=== PATIENT | male | born 1960 | race Caucasian/White ===

== ENCOUNTER 2020-10-09 16:37 | Emergency (ER) | payer OTHER ==
[2020-10-09] MEDS ORDERED: FAMOTIDINE 20 MG/2 ML VIAL IV ONE (18:08)
[2020-10-09] MEDS ORDERED: NA CHLORIDE 0.9% 500 ML ONE (18:08)
[2020-10-09 18:12] LABS: Absolute Lymphocytes (CBC) 1.8 K/uL (0.7-4.9); Basophils % 0.5 % (0-1.3); Hematocrit 42.4 % (39.6-49.0); Lymphocytes % 14.6 % (15.3-44.8); MPV 9.4 fL (7.6-11.3); RBC Red Blood Cell Count 4.56 M/uL (4.33-5.43)
[2020-10-09] MEDS ORDERED: ONDANSETRON 4 MG/2 ML VIAL ONE (18:24)
[2020-10-09] MEDS ORDERED: MORPHINE 4 MG/ML SYR ONE (18:24)
[2020-10-09 18:35] LABS: Urine Blood NEGATIVE (NEG); Urine Glucose NEGATIVE (NEG); Urine Protein NEGATIVE (NEG); Urine Specific Gravity 1.015 (1.005-1.030)
[2020-10-09 18:48] LABS: Bilirubin Direct 0.2 mg/dL (0-0.2); Bilirubin Total 0.8 mg/dL (0.2-1.0); Potassium 4.1 mmol/L (3.5-5.1); Protein, Total 7.3 g/dL (6.4-8.2)
--- NOTE | 2020-10-09 19:19 | RAD REPORT ---
EXAM DESCRIPTION: CT - Abdomen Pelvis W Contrast - 10/09/2020 7:02 pm CLINICAL HISTORY: Abdominal pain COMPARISON: none. TECHNIQUE: Computed axial tomography of the abdomen pelvis was obtained. 100 cc Isovue-300 was admin istered intravenously. Oral contrast was not requested which limits evaluation of bowel. All CT scans are performed using dose optimization technique as appropriate and may include automated exposure control or mA/KV adjustment according to patient size. FINDINGS: Multiple gallstones. No gallbladder wall thickening The liver, spleen, pancreas, adrenal and kidneys appear unremarkable. Diverticulosis. Mild stranding adjacent to the sigmoid colon. No free air. No abscess. Prostate gland mildly enlarged. Normal appendix IMPRESSION: Mild sigmoid diverticulitis
[2020-10-09] MEDS ORDERED: METRONIDAZOLE 500mg IVPB 500 MG/100 ML BAG IV ONE (19:56)
[2020-10-09] MEDS ORDERED: CIPROFLOXACIN 400mg IV 400 MG/200 ML BAG IV ONE (19:57)
--- NOTE | 2020-10-09 21:08 | ER ---
Nurse's Notes [facility] Name: Jon Bui Age: 60 yrs Sex: Male : 1960 Arrival Date: 10/09/2020 Time: 16:42 Bed 14 Private MD: Yomi Epstein Diagnosis: Diverticulitis Presentation: 10/09 16:49 Chief complaint: Patient states: LLQ abd pain for 2 days. Denies fever. No N/V/D. Had ll1 diverticulitis 7 years ago, feels the same. Coronavirus screen: Client denies travel out of the [place] in the last 14 days. Ebola Screen: Patient denies travel to an Ebola-affected area in the 21 days before illness onset. Initial Sepsis Screen: Does the patient meet any 2 criteria? No. Patient's initial sepsis screen is negative. Does the patient have a suspected source of infection? Yes: Acute abdominal pain. Risk Assessment: Do you want to hurt yourself or someone else? Patient reports no desire to harm self or others. Onset of symptoms was October 08, 2020. 16:49 Method Of Arrival: Ambulatory ll1 16:49 Acuity: ROSCOE 3 ll1 Historical: - Allergies: 16:49 Sulfa (Sulfonamide Antibiotics); ll1 - PMHx: 16:49 Diverticulitis; Hypertension; High Cholesterol; ll1 - PSHx: 16:49 colectomy; Hernia repair; ll1 - Immunization history:: Flu vaccine is not up to date. - Social history:: Smoking status: Patient denies any tobacco usage or history of. Screenin:40 Abuse screen: Denies threats or abuse. Nutritional screening: No deficits noted. em Tuberculosis screening: No symptoms or risk factors identified. Fall Risk None identified. Assessment: 17:40 General: Appears in no apparent distress. uncomfortable, Behavior is calm, cooperative, em appropriate for age, Denies fever. Pain: Complains of pain in right lower quadrant and left lower quadrant Pain does not radiate. Pain currently is 4 out of 10 on a pain scale. at worst was 7 out of 10 on a pain scale. Quality of pain is described as dull, Pain began 1 day ago. Neuro: Level of Consciousness is awake, alert, obeys commands, Oriented to person, place, time, situation. Cardiovascular: Capillary refill < 3 seconds Patient's skin is warm and dry. Chest pain is denied. Respiratory: Airway is patent Respiratory effort is even, unlabored, Respiratory pattern is regular, symmetrical, Denies shortness of breath. GI: Abdomen is round non-distended, Bowel sounds present X 4 quads. Abd is soft X 4 quads Abdomen is tender to palpation in abdomen diffusely Reports bloating. : Denies burning with urination. Derm: Skin is intact, is healthy with good turgor, Skin is pink, warm \T\ dry. Musculoskeletal: Capillary refill < 3 seconds, Range of motion: intact in all extremities. 18:30 Reassessment: Patient appears in no apparent distress at this time. Patient and/or em family updated on plan of care and expected duration. Pain level reassessed. Patient is alert, oriented x 3, equal unlabored respirations, skin warm/dry/pink. Patient states feeling better. 19:17 General: Appears in no apparent distress. Pain: Denies pain. Neuro: No deficits noted. ad1 Cardiovascular: No deficits noted. Respiratory: No deficits noted. Airway is patent Trachea midline Respiratory effort is even, unlabored, Respiratory pattern is regular. GI: Abdomen is tender to palpation in right lower quadrant and left lower quadrant states no pain at this time. 20:34 Reassessment: Patient appears in no apparent distress at this time. No changes from ad1 previously documented assessment. Patient and/or family updated on plan of care and expected duration. Pain level reassessed. Patient is alert, oriented x 3, equal unlabored respirations, skin warm/dry/pink. Patient states feeling better. Vital Signs: 16:49 BP 160 / 84; Pulse 67; Resp 17; Temp 98.6; Pulse Ox 99% ; Weight 83.91 kg; Height 5 ft. ll1 10 in. (177.80 cm); Pain 6/10; 18:30 BP 131 / 75; Pulse 60; Resp 18; Pulse Ox 99% on R/A; em 19:15 BP 142 / 81; Pulse 68; Resp 18; Pulse Ox 100% ; Pain 0/10; ad1 20:35 BP 127 / 76; Pulse 64; Resp 16; Pulse Ox 100% ; ad1 21:30 BP 126 / 77; Pulse 65; Resp 18; Pulse Ox 100% ; ad1 21:40 BP 138 / 83; Pulse 64; Resp 18; Pulse Ox 100% ; ad1 16:49 Body Mass Index 26.54 (83.91 kg, 177.80 cm) ll1 ED Course: 16:42 Patient arrived in ED. mr 16:43 Yomi Epstein, is Private Physician. mr 16:49 Arm band placed on. ll1 16:51 Triage completed. 1 17:18 Derick Blair MD is Attending Physician. kdr 17:23 Kenji Khan, FRAN is Primary Nurse. em 17:40 Patient has correct armband on for positive identification. Bed in low position. Call em light in reach. Side rails up X2. Adult w/ patient. Pulse ox on. NIBP on. 18:00 Initial lab(s) drawn, by me, sent to lab. Inserted saline lock: 20 gauge in right em antecubital area, using aseptic technique. Blood collected. 19:01 CT Abd/Pelvis - IV Contrast Only In Process Unspecified. EDIA 19:18 Attending Physician role handed off by Derick Blair MD [facility] 19:18 Delroy Azevedo MD is Attending Physician. [facility] 21:06 Sharath Vargas MD is Referral Physician. [facility] 21:40 No provider procedures requiring assistance completed. IV discontinued. ad1 Administered Medications: 18:00 Drug: NS 0.9% 500 ml Route: IV; Rate: bolus; Site: right antecubital; em 18:59 Follow up: IV Status: Completed infusion; IV Intake: 500ml em 18:00 Drug: Pepcid 20 mg Route: IVP; Site: right antecubital; em 18:17 Follow up: Response: No adverse reaction em 18:17 Drug: morphine 4 mg Route: IVP; Site: right antecubital; em 18:59 Follow up: Response: No adverse reaction; Marked relief of symptoms; Pain is decreased; em RASS: Alert and Calm (0) 18:19 Drug: Zofran (Ondansetron) 4 mg Route: IVP; Site: right antecubital; em 18:59 Follow up: Response: No adverse reaction em 19:53 Drug: Flagyl 500 mg Volume: 100 ml; Route: IVPB; Rate: 200 ml/hr; Infused Over: 30 ad1 mins; Site: right antecubital; 20:26 Drug: Cipro 400 mg Volume: 200 ml; Route: IVPB; Infused Over: 60 mins; Site: right ad1 antecubital; Intake: 18:59 IV: 500ml; Total: 500ml. em Outcome: 21:07 Discharge ordered by . naina 21:40 Discharged to home ad1 21:40 Condition: good 21:40 Discharge instructions given to patient, Instructed on discharge instructions, follow up and referral plans. Demonstrated understanding of instructions, follow-up care, medications, Prescriptions given X 4. 21:41 Patient left the ED. ad1 Signatures: Dispatcher [employer] EDMS Derick Blair MD MD [facility] [place]ol[place], [place] mr Kenji Khan RN RN em Kathleen Wong RN RN ad1 Janice Robison RN RN 1 Delroy Azevedo MD MD 7 Corrections: (The following items were deleted from the chart) 10/10 00:02 00:01 Discharged to home ad1 ad1 00:02 00:01 Condition: good ad1 ad1 00:02 00:01 Discharge instructions given to patient, Instructed on discharge instructions, ad1 follow up and referral plans. Demonstrated understanding of instructions, follow-up care, medications, Prescriptions given X 4, ad1
--- NOTE | 2020-10-09 21:08 | EDPHYS ---
Physician Documentation [facility] Name: Jon Bui Age: 60 yrs Sex: Male : 1960 Arrival Date: 10/09/2020 Time: 16:42 Bed 14 Private MD: Yomi Epstein ED Physician Delroy Azevedo HPI: 10/09 17:50 This 60 yrs old Male presents to ER via Ambulatory with complaints of kdr Abdominal Pain. 17:50 The patient presents with abdominal pain in the lower abdomen, in the left lower kdr quadrant, abdominal distention in the left upper quadrant, in the left lower quadrant, that is diffuse. Onset: The symptoms/episode began/occurred gradually, yesterday. The symptoms do not radiate. Associated signs and symptoms: Pertinent positives: nausea, Pertinent negatives: blood in stools, chest pain, constipation, diarrhea, dysuria, fever, headache, hematuria, shortness of breath, testicular pain, vomiting, vomiting blood, More frequent urination and smaller caliber stools. The symptoms are described as achy, burning, dull, Occasionally when more severe, the pain is stabbing. Modifying factors: The symptoms are alleviated by nothing, the symptoms are aggravated by movement, pressure, touching the area, walking. Severity of pain: At its worst the pain was moderate just prior to arrival, in the emergency department the pain has improved moderately. The patient has experienced a previous episode, About 20 years ago, the patient had a bowel obstruction and had emergent laparotomy and colon resection. He states that this pain is similar. It is unknown whether or not the patient has recently seen a physician. Historical: - Allergies: 16:49 Sulfa (Sulfonamide Antibiotics); ll1 - PMHx: 16:49 Diverticulitis; Hypertension; High Cholesterol; ll1 - PSHx: 16:49 colectomy; Hernia repair; ll1 - Immunization history:: Flu vaccine is not up to date. - Social history:: Smoking status: Patient denies any tobacco usage or history of. ROS: 17:50 Constitutional: Negative for fever, chills, and weight loss, Eyes: Negative for injury, kdr pain, redness, and discharge, ENT: Negative for injury, pain, and discharge, Neck: Negative for injury, pain, and swelling, Cardiovascular: Negative for chest pain, palpitations, and edema, Respiratory: Negative for shortness of breath, cough, wheezing, and pleuritic chest pain, Back: Negative for injury and pain, : Negative for injury, bleeding, discharge, and swelling, MS/Extremity: Negative for injury and deformity, Skin: Negative for injury, rash, and discoloration, Neuro: Negative for headache, weakness, numbness, tingling, and seizure activity. Psych: Negative for depression, anxiety, suicide ideation, homicidal ideation, and hallucinations, Allergy/Immunology: Negative for hives, rash, and allergies, Endocrine: Negative for neck swelling, polydipsia, polyuria, polyphagia, and marked weight changes, Hematologic/Lymphatic: Negative for swollen nodes, abnormal bleeding, and unusual bruising. 17:50 Abdomen/GI: Positive for abdominal pain, nausea, abdominal cramps, abdominal distension, Negative for vomiting, diarrhea, anorexia, dysphagia, hematemesis, black/tarry stool, rectal pain, rectal bleeding, bowel incontinence. Exam: 17:50 Constitutional: This is a well developed, well nourished patient who is awake, alert, kdr and in no acute distress. Head/Face: Normocephalic, atraumatic. Eyes: Pupils equal round and reactive to light, extra-ocular motions intact. Lids and lashes normal. Conjunctiva and sclera are non-icteric and not injected. Cornea within normal limits. Periorbital areas with no swelling, redness, or edema. Neck: Trachea midline, no thyromegaly or masses palpated, and no cervical lymphadenopathy. Supple, full range of motion without nuchal rigidity, or vertebral point tenderness. No Meningismus. Chest/axilla: Normal chest wall appearance and motion. Nontender with no deformity. No lesions are appreciated. Cardiovascular: Regular rate and rhythm with a normal S1 and S2. No gallops, murmurs, or rubs. Normal PMI, no JVD. No pulse deficits. Respiratory: Lungs have equal breath sounds bilaterally, clear to auscultation and percussion. No rales, rhonchi or wheezes noted. No increased work of breathing, no retractions or nasal flaring. Back: No spinal tenderness. No costovertebral tenderness. Full range of motion. Skin: Warm, dry with normal turgor. Normal color with no rashes, no lesions, and no evidence of cellulitis. MS/ Extremity: Pulses equal, no cyanosis. Neurovascular intact. Full, normal range of motion. Neuro: Awake and alert, GCS 15, oriented to person, place, time, and situation. Cranial nerves II-XII grossly intact. Motor strength 5/5 in all extremities. Sensory grossly intact. Cerebellar exam normal. Normal gait. Psych: Awake, alert, with orientation to person, place and time. Behavior, mood, and affect are within normal limits. 17:50 Abdomen/GI: Inspection: distension, that is moderate, in the abdomen diffusely, Bowel sounds: active, diminished, in all quadrants, Palpation: soft, mild abdominal tenderness, in the left upper quadrant and right lower quadrant, moderate abdominal tenderness, in the left lower quadrant, mass, is not appreciated, rebound tenderness, is not appreciated, voluntary guarding, involuntary guarding, is elicited in the left lower quadrant. Vital Signs: 16:49 BP 160 / 84; Pulse 67; Resp 17; Temp 98.6; Pulse Ox 99% ; Weight 83.91 kg; Height 5 ft. ll1 10 in. (177.80 cm); Pain 6/10; 18:30 BP 131 / 75; Pulse 60; Resp 18; Pulse Ox 99% on R/A; em 19:15 BP 142 / 81; Pulse 68; Resp 18; Pulse Ox 100% ; Pain 0/10; ad1 20:35 BP 127 / 76; Pulse 64; Resp 16; Pulse Ox 100% ; ad1 21:30 BP 126 / 77; Pulse 65; Resp 18; Pulse Ox 100% ; ad1 21:40 BP 138 / 83; Pulse 64; Resp 18; Pulse Ox 100% ; ad1 16:49 Body Mass Index 26.54 (83.91 kg, 177.80 cm) ll1 MDM: 17:50 Data reviewed: vital signs, nurses notes, lab test result(s), radiologic studies, CT kdr scan. Counseling: I had a detailed discussion with the patient and/or guardian regarding: the historical points, exam findings, and any diagnostic results supporting the discharge/admit diagnosis, lab results, radiology results. 21:05 Differential diagnosis: bowel obstruction, diverticulitis, non-specific abd pain, mh7 Ureterolithiasis, urinary tract infection. Data interpreted: Pulse oximetry: on room air is 100 %. Interpretation: normal. Response to treatment: the patient's symptoms have resolved after treatment, the patient's blood pressure is in an acceptable range, mental status has returned to baseline, the patient no longer shows bradycardia, the patient is not short of breath, the patient is not tachycardic, the patient's pain is gone, the patient's temperature has normalized. 21:07 Patient medically screened. mh7 10/09 17:50 Order name: Basic Metabolic Panel; Complete Time: 18:52 kdr 10/09 17:50 Order name: CBC with Diff; Complete Time: 18:52 kdr 10/09 17:50 Order name: Hepatic Function; Complete Time: 18:52 kdr 10/09 17:50 Order name: Lipase; Complete Time: 18:52 kdr 10/09 17:50 Order name: CT Abd/Pelvis - IV Contrast Only; Complete Time: 19:22 kdr 10/09 18:15 Order name: Urine Dipstick--Ancillary (enter results); Complete Time: 18:52 eb 10/09 17:50 Order name: IV Saline Lock; Complete Time: 18:07 kdr 10/09 17:50 Order name: Labs collected and sent; Complete Time: 18:07 kdr 10/09 17:50 Order name: Urine Dipstick-Ancillary (obtain specimen); Complete Time: 18:04 kdr Administered Medications: 18:00 Drug: NS 0.9% 500 ml Route: IV; Rate: bolus; Site: right antecubital; em 18:59 Follow up: IV Status: Completed infusion; IV Intake: 500ml em 18:00 Drug: Pepcid 20 mg Route: IVP; Site: right antecubital; em 18:17 Follow up: Response: No adverse reaction em 18:17 Drug: morphine 4 mg Route: IVP; Site: right antecubital; em 18:59 Follow up: Response: No adverse reaction; Marked relief of symptoms; Pain is decreased; em RASS: Alert and Calm (0) 18:19 Drug: Zofran (Ondansetron) 4 mg Route: IVP; Site: right antecubital; em 18:59 Follow up: Response: No adverse reaction em 19:53 Drug: Flagyl 500 mg Volume: 100 ml; Route: IVPB; Rate: 200 ml/hr; Infused Over: 30 ad1 mins; Site: right antecubital; 20:26 Drug: Cipro 400 mg Volume: 200 ml; Route: IVPB; Infused Over: 60 mins; Site: right ad1 antecubital; Disposition: 10/09/20 21:07 Discharged to Home. Impression: Diverticulitis. - Condition is Stable. - Discharge Instructions: Diverticulitis, Ajef-oy-Ehve, Clear Liquid Diet, [id number]. - Prescriptions for Bentyl 20 mg Oral Tablet - take 1 tablet by ORAL route every 6 hours As needed; 20 tablet. Flagyl 500 mg Oral Tablet - take 1 tablet by ORAL route every 8 hours for 10 days; 30 tablet. Tylenol- Codeine #3 300-30 mg Oral Tablet - take 2 tablets by ORAL route every 6 hours As needed; 20 tablet. Cipro 500 mg Oral Tablet - take 1 tablet by ORAL route every 12 hours for 10 days; 20 tablet. - Medication Reconciliation Form, Thank You Letter, Antibiotic Education, Prescription Opioid Use form. - Follow up: Private Physician; When: 1 - 2 days; Reason: Worsening of condition, Recheck today's complaints, Continuance of care, Re-evaluation by your physician. Follow up: Sharath Vargas MD; When: 1 - 2 days; Reason: Worsening of condition, Recheck today's complaints. - Problem is an acute exacerbation. - Symptoms have improved. Signatures: Dispatcher [employer] Derick Thomas MD MD [facility] Kenji Khan RN FRAN Kathleen Wong RN RN ad1 Janice Robison RN RN ll1 Delroy Azevedo MD MD mh7 Corrections: (The following items were deleted from the chart) 21:41 21:07 10/09/2020 21:07 Discharged to Home. Impression: Diverticulitis. Condition is ad1 Stable. Forms are Medication Reconciliation Form, Thank You Letter, Antibiotic Education, Prescription Opioid Use. Follow up: Private Physician; When: 1 - 2 days; Reason: Worsening of condition, Recheck today's complaints, Continuance of care, Re-evaluation by your physician. Follow up: Sharath Vargas; When: 1 - 2 days; Reason: Worsening of condition, Recheck today's complaints. Problem is an acute exacerbation. Symptoms have improved. 7
[2020-10-10 04:13] VITALS: TEMP 98.6
[2020-10-10 04:16] VITALS: O2SAT 100
[2020-10-10 04:21] VITALS: BP 138/83
== END 2020-10-09 21:41 | disposition home or self-care (01) ==
LOC: ER 16:37
DX: K57.92 Diverticulitis of intestine, part unspecified, without perforation or abscess without bleeding (principal); I10 Essential (primary) hypertension; Z88.2 Allergy status to sulfonamides
CPT/HCPCS: 96361; 85025; 80048; 36415; 80076; 81003; 83690; 74177; 96375; 96374; 99284; Q9967; J7040; J2405; J0744

== ENCOUNTER 2021-11-03 14:16 | Emergency (ER) | payer OTHER ==
--- OUTSIDE RECORDS SUMMARY | 2021-11-03 14:19 | XMS REPORT | Continuity of Care Document ---
:1960 Author Organization [facility] t Address [address] [place] [address] Care Team Providers Name Role Phone AMELIA Attending Clinician Unavailable Payers Payer Name Policy Type Policy Number Effective Date Expiration Date S lauri [employer] [id number] [employer] [id number] 2019 00:00:00 Problems This patient has no known problems. Allergies, Adverse Reactions, Alerts Allergy Allergy Status Severity Reaction(s) Onset Inactive Treating Comm ents Source Name Type Date Date Clinician SULFA Allergy Active Other SLE (SULFONA 908 MIDE 00:00: ANTIBIOT 00 ICS) Sulfa Adverse Active Info Not [facility] Reaction Available [facility] Medications Ordered Filled Start Stop Current Ordering Indication Dosage Frequency Signature Comments Components Source Medication Medication Date Date Medication? Clinician (SIG) Name Name Tamsulosin Tamsulosin 2020- No Anh [address] [facility] HCl HCl 8-17 02-12 Leila [facility] Prazosin Prazosin 2018-11 Yes Anh [address] [facility] HCl HCl 0-28 Leila at bedtime [facility] Triamcinolo Triamcinolo 2018-11 Yes Anh [address] [facility] ne ne 0-28 Adell applicatio [facility] Acetonide Ac[facility]ide [facility]: n [facility] Fluoxetine Fluoxetine Yes Anh [address] [facility] HCl HCl Adell [facility] Trazodone Trazodone Yes Anh [address] [facility] HCl HCl Adell at bedtime [facility] Losartan Losartan Yes Anh [address] Potassium Potassium [facility] Atorvastati Atorvastati Yes Anh [address] [facility] n Calcium n Calcium Leila [facility] Immunizations Ordered Filled Immunization Date Status Comments [facility] e Immunization Name Name PNEUMAVAX 23 PNEUMAVAX 23 2019-11-[address] [facility] - 00:[facility]00 [facility] Procedures This patient has no known procedures. Encounters Start End Encounter Admission Attending Care Care Encounter Source Date/Time Date/Time Type Type Clinicians Facility Department ID 2021-09-21 2021-09-21 ambulatory [facility] [id number] [facility] 2021-09-07 2021-09-07 Out[facility] [id number] [facility] 2021-09-07 2021-09-07 Out[facility] [id number] [facility] 2021-04-08 2021-04-08 [facility] [id number] [facility] 2021-01-10 2021-01-10 Out[facility] [id number] [facility] 2020-12-23 2020-12-23 Out[facility] [id number] [facility] 2020-12-17 2020-12-17 Out[facility] [id number] [facility] 2020-12-08 2020-12-08 [facility] [id number] [facility] 2020-12-02 2020-12-02 [facility] [id number] [facility] 2020-11-25 2020-11-25 [facility] [id number] [facility] 2020-10-28 2020-10-28 [facility] [id number] [facility] 2020-10-20 2020-10-20 Out[facility] [id number] [facility] 2020-10-19 2020-10-19 Out[facility] [id number] [facility] 2020-09-27 2020-09-27 Out[facility] [id number] [facility] 2020-09-06 2020-09-06 Out[facility] [id number] [facility] 2020-08-02 2020-08-02 [facility] [id number] [facility] 09:00:00 09:00:00 t Specialty/U [facility] - [facility]Urology Clinic l Clinic Outpati ent Clinics 2020-07-27 2020-07-27 Outpatient AMELIA, [facility] [id number] [facility] 00:00:00 00:00:00 DAE 2020-07-21 2020-07-21 Outpatient EL AMELIA, [facility] [id number] [facility] 00:00:00 00:00:00 [facility]AE 2020-07-05 2020-07-05 [facility] [id number] [facility] 08:30:00 08:30:00 t Specialty/U Jesi [facility] - Specialty rology Mem[facility] /Urology Clinic l [facility] 2020-07-01 2020-07-01 Outpatient Eneida Hunter [id number] [facility] 09:30:00 09:30:00 [facility] 2020-01-01 2020-01-01 Outpatient Eneida Moniquet [id number] 08:45:00 08:45:00 t [facility] 2019-11-24 2019-11-24 Outpatient Eneida Moniquet [id number] 10:30:00 10:30:00 [facility] 2019-09-15 2019-09-15 Outpatient Eneida Moniquet [id number] [facility] 13:30:00 13:30:00 [facility] Results Test Description Test Time Test Comments Results Result [facility] Comments MR, PELVIS, Unlisted FINAL REPORT PATIENT ID: WITHOUT / WITH IV 8 Reason for [id number] PROCEDURE: MRI CONTRAST 15:32:00 Exam - Click PROSTATE WITH CONTRAST Yes and Enter COMPARISON: None CLINICAL Reason HISTORY: Unlisted Reason Below->YesUnl for ExamN40.0 TECHNIQUE: isted Reason Using a phased array coil for small xrwzz-ma-mtdt Exam->N40.0 imaging of the prostate was performed using the following sequences; [axial T1-weighted, axial T2-weighted, sagittal T2-weighted,oblique coronal T2-weighted, diffusion-weighted]. Axial T1-weighted images with fat suppression through the prostate were obtained before and dynamically after the intravenous administration of gadolinium. Using a large [id number]-oc-tqgl, the entire pelvis to the level of the aortic bifurcation was imaged with the following sequences; precontrast nonfat saturated T1-weighted images FINDINGS: PROSTATE: Size of total gland: 4.5 x 4.2 x 4.7 cm. Total volume 46.2 cc. BPH: Multifocal well-circumscribed lesions of heterogeneous T2 hyperintensity, consistent with BPH nodulesMedian lobe: Mildly hypertrophiedEvidence of TURP: No TRANSITIONAL ZONE: At the basal mid gland, there is non-circumscribed T2 heterogeneous signal with obscured margins, 1.4 x 1.4 cm, with enhancement (series 5, image 13) in the periphery of the left transitional zone, with focal markedly hypointense ADC signal and markedly hyperintense DWI signal. Does not abut the capsule and does not involve the seminal vesicle or neurovascular bundle. PERIPHERAL ZONE: No suspicious focal lesions SEMINAL VESICLES: Right: Normal in appearance and signal characteristics. Left: Normal in appearance and signal characteristics. EXTRACAPSULAR EXTENSION: No extracapsular extension identified on MRI. NEUROVASCULAR BUNDLES: Intact. BLADDER: Circumferential mild bladder wall trabeculations VESSELS: Normal in morphology LYMPH NODES: No pelvic lymphadenopathy. BOWEL: Normal in morphology BONES/BONE MARROW: Normal bone marrow signal intensity. No fractures. No suspicious bone lesion. IMPRESSION: 1. Intermediate suspicion 1.4 cm lesion in the left transitional zone at the basal mid gland. PI-RADS 3. No evidence for extra prostatic extension. 2. No suspicious lesions in the peripheral zone. 3. BPH and mild prostatomegaly PI-RADS: 1- benign; 2 - most probably benign;3 - intermediate; 4 - probably malignant;5 - highly suspicious of malignancy Signed: Tiffany Guerrier MDReport Verified Date/Time: 07/27/2020 15:32:02 Reading Location: [address] Consult Reading Room -CREATININE 2020-07-27 07:19:00 Test Item Value Reference Range Interpretation Comme [facility] POC-CREATININE (RENATEAKER) 1.1 mg/dL 0.6-1.3 : TE STED AT [facility] 7200 (test code = 1859) [facility] [id number]: Patient Services Manager /Surveyor Rod Helper ID = [id number] for THEA REID POC-EGFR (BEAKER) (test 68 mL/min/1.73M2 code = 1860)
[2021-11-03] MEDS ORDERED: MORPHINE 4 MG/ML SYR ONE ×2 (14:29→15:39)
[2021-11-03] MEDS ORDERED: ONDANSETRON 4 MG/2 ML VIAL ONE (14:29)
[2021-11-03] MEDS ORDERED: NA CHLORIDE 0.9% 1,000 ML ONE (14:30)
[2021-11-03 14:36] LABS: Absolute Lymphocytes (CBC) 3.3 K/uL (0.7-4.9); Basophils % 0.5 % (0-1.3); Lymphocytes % 32.7 % (15.3-44.8); MPV 8.6 fL (7.6-11.3); RBC Red Blood Cell Count 4.66 M/uL (4.33-5.43)
[2021-11-03 14:52] LABS: Albumin 3.8 g/dL (3.4-5.0); Bilirubin Direct 0.2 mg/dL (0-0.2); Potassium 3.2 mmol/L (3.5-5.1); Protein, Total 7.4 g/dL (6.4-8.2)
[2021-11-03] MEDS ORDERED: FENTANYL CITR 100 MCG/2 ML ONE (14:58)
--- NOTE | 2021-11-03 15:41 | RAD REPORT ---
EXAM DESCRIPTION: CTAbdomen Pelvis W Contrast - 11/03/2021 3:28 pm CLINICAL HISTORY: ABD PAIN COMPARISON: Abdomen Pelvis W Contrast dated 10/09/2020 TECHNIQUE: CT of the abdomen and pelvis was performed. All CT scans are performed using dose optimization technique as appropriate and may include automated exposure control or mA/KV adjustment according to patient size. FINDINGS: Lower chest: Scattered coronary artery calcifications. Small hiatal hernia. Liver: No acute abnormality or suspicious lesions. Biliary: Cholelithiasis without CT evidence of acute cholecystitis. Stomach: No significant focal abnormality. Duodenum: No significant focal abnormality. Pancreas: No significant abnormality. Spleen: No significant abnormality. Adrenal: No suspicious lesions. Kidney/ureter: Mild right-sided hydronephrosis. No obstructing stone is identified. Retroperitoneum: No retroperitoneal adenopathy. Vascular: No aneurysm. Bowel: No significant focal abnormality. Normal appendix. Partial colectomy. Peritoneum: No ascites or free air. Bladder: Grossly unremarkable. Reproductive: No adnexal masses. Prostatomegaly. Bones: No acute fracture. Disc height loss at L5-S1. Other: n/a IMPRESSION: Mild right-sided hydronephrosis. No obstructing stone or mass is identified. This could be secondary to infection or recently passed stone. If symptoms persist, consider urologic referral.
[2021-11-03] MEDS ORDERED: KETOROLAC 30 MG/ML INJ ONE (15:47)
[2021-11-03 17:29] LABS: Urine Blood 3+ (Negative); Urine Glucose Negative (Negative); Urine Protein Negative (Negative); Urine Specific Gravity <=1.005 (1.005-1.030)
--- NOTE | 2021-11-03 17:29 | EDPHYS ---
Physician Documentation [facility] Name: Jon Bui Age: 61 yrs Sex: Male : 1960 Arrival Date: 11/03/2021 Time: 14:18 Bed 13 Private MD: ED Physician Derick Blair HPI: 11/03 15:44 This 61 yrs old Male presents to ER via Wheelchair with complaints of Abdominal Pain. kb 15:44 The patient presents with abdominal pain right lower quadrant. Onset: The kb symptoms/episode began/occurred just prior to arrival. The symptoms do not radiate. Associated signs and symptoms: none. The symptoms are described as constant. Modifying factors: The symptoms are alleviated by nothing, the symptoms are aggravated by nothing. Severity of pain: At its worst the pain was moderate severe in the emergency department the pain is unchanged. The patient has not experienced similar symptoms in the past. The patient has not recently seen a physician. 15:57 Pt reports sudden onset of sharp pain to right lower back radiating to RLQ and down to kb groin.. Historical: - Allergies: 14:24 Sulfa (Sulfonamide Antibiotics); iw - PMHx: 14:24 Diverticulitis; High Cholesterol; Hypertension; iw - Immunization history:: Client reports receiving the 2nd dose of the Covid vaccine. - Social history:: Smoking status: . ROS: 15:44 Constitutional: Negative for fever, chills, and weight loss. kb 15:44 Abdomen/GI: Positive for abdominal pain, Negative for nausea, vomiting, and diarrhea. 15:44 All other systems are negative. Exam: 15:44 Constitutional: This is a well developed, well nourished patient who is awake, alert, kb and in no acute distress. Head/Face: Normocephalic, atraumatic. ENT: Moist Mucous membranes Cardiovascular: Regular rate and rhythm with a normal S1 and S2. No gallops, murmurs, or rubs. No pulse deficits. Respiratory: Respirations even and unlabored. No increased work of breathing. Talking in full sentences Skin: Warm, dry with normal turgor. Normal color. MS/ Extremity: Pulses equal, no cyanosis. Neurovascular intact. Full, normal range of motion. Neuro: Awake and alert, GCS 15, oriented to person, place, time, and situation. Moves all extremities. Normal gait. Psych: Awake, alert, with orientation to person, place and time. Behavior, mood, and affect are within normal limits. 15:44 Abdomen/GI: Inspection: abdomen appears normal, Bowel sounds: normal, in all quadrants, Palpation: soft, in all quadrants, moderate abdominal tenderness, in the right lower quadrant. Vital Signs: 14:22 BP 184 / 79; Pulse 62; Resp 18; Temp 97.8; Pulse Ox 100% ; Weight 83.91 kg; Height 5 iw ft. 10 in. (177.80 cm); Pain 10/10; 14:25 BP 184 / 69; Pulse 87; Resp 20; Temp 97.8; Pulse Ox 98% on R/A; kj1 15:00 BP 144 / 72; Pulse 66; Resp 22 S; Pulse Ox 100% on R/A; jg9 16:00 BP 130 / 70; Pulse 66; Resp 10; Pulse Ox 89% on R/A; jg9 17:00 BP 117 / 64; Pulse 83; Resp 14; Pulse Ox 98% on 2 lpm NC; jg9 14:22 Body Mass Index 26.54 (83.91 kg, 177.80 cm) iw MDM: 14:30 Patient medically screened. kb 15:44 Data reviewed: vital signs, nurses notes. Data interpreted: Pulse oximetry: on room air kb is 100 %. Interpretation: normal. 15:45 Counseling: I had a detailed discussion with the patient and/or guardian regarding: the kb historical points, exam findings, and any diagnostic results supporting the discharge/admit diagnosis, lab results, radiology results, the need for outpatient follow up, a urologist, to return to the emergency department if symptoms worsen or persist or if there are any questions or concerns that arise at home. 11/03 14:22 Order name: Basic Metabolic Panel; Complete Time: 15:11 iw 11/03 14:22 Order name: CBC with Diff; Complete Time: 15:11 iw 11/03 14:22 Order name: Hepatic Function; Complete Time: 15:11 iw 11/03 14:22 Order name: Lipase; Complete Time: 15:11 iw 11/03 14:29 Order name: CT Abd/Pelvis - IV Contrast Only; Complete Time: 15:43 kb 11/03 17:29 Order name: Urine Dipstick-Ancillary; Complete Time: 17:29 EDME 11/03 14:22 Order name: IV Saline Lock; Complete Time: 14:30 iw 11/03 14:22 Order name: Labs collected and sent; Complete Time: 14:30 iw 11/03 15:57 Order name: Urine Dipstick-Ancillary (obtain specimen); Complete Time: 17:42 kb Administered Medications: 14:38 Drug: Zofran (Ondansetron) 4 mg Route: IVP; Site: right antecubital; iw 14:45 Follow up: Response: No adverse reaction; Nausea is decreased jg9 14:38 Drug: morphine 4 mg Route: IVP; Site: right antecubital; iw 14:45 Follow up: Response: No adverse reaction; No change in condition jg9 15:03 Follow up: Response: RASS: Alert and Calm (0) jg9 14:39 Drug: NS 0.9% 1000 ml Route: IV; Rate: 1000 ml; Site: right antecubital; iw 14:50 Drug: fentaNYL (PF) 25 mcg Route: IVP; Site: right antecubital; jg9 15:30 Follow up: Response: No adverse reaction; Other; RASS: Alert and Calm (0) jg9 15:43 Drug: morphine 4 mg Route: IVP; Site: right antecubital; jg9 15:53 Follow up: Response: No adverse reaction; Pain is decreased jg9 15:50 Drug: Ketorolac 15 mg Route: IVP; Site: right antecubital; jg9 17:42 Not Given (Patient Refused): Potassium Chloride 40 mEq PO once jg9 Disposition: 19:52 Co-signature as Attending Physician, Derick Blair MD I agree with the assessment and kdr plan of care. Disposition Summary: 11/03/21 17:29 Discharge Ordered Location: Home kb Condition: Stable kb Diagnosis - Other hydronephrosis kb Followup: kb - With: Emergency Department - When: As needed - Reason: Worsening of condition Followup: kb - With: Private Physician - When: 2 - 3 days - Reason: Recheck today's complaints, Continuance of care, Re-evaluation by your physician Discharge Instructions: - Discharge Summary Sheet kb - Hydronephrosis kb Forms: - Medication Reconciliation Form kb - Thank You Letter kb - Antibiotic Education kb - Prescription Opioid Use kb Prescriptions: - Zofran 4 mg Oral Tablet - take 1 tablet by ORAL route every 6 hours As needed; 20 tablet; Refills: 0, kb Product Selection Permitted - Diclofenac Sodium 75 mg Oral tablet,delayed release (DR/EC) - take 1 tablet by ORAL route 2 times per day As needed; 30 tablet; Refills: 0, kb Product Selection Permitted Signatures: Dispatcher [employer] Jennifer Daley, SHARLENE THOMAS-Derick Pillai MD MD kdr Williams, Irene, RN RN Faby Elise jg9
--- NOTE | 2021-11-03 17:29 | ER ---
Nurse's Notes [facility] Name: Jon Bui Age: 61 yrs Sex: Male : 1960 Arrival Date: 11/03/2021 Time: 14:18 Bed 13 Private MD: Diagnosis: Other hydronephrosis Presentation: 11/03 14:22 Chief complaint: Patient states: sudden RLQ pain X 30 minutes, pain is stabbing, hx of iw colectomy and resection. Coronavirus screen: At this time, the client does not indicate any symptoms associated with coronavirus-19. Ebola Screen: Patient negative for fever greater than or equal to 101.5 degrees Fahrenheit, and additional compatible Ebola Virus Disease symptoms Patient denies exposure to infectious person. Patient denies travel to an Ebola-affected area in the 21 days before illness onset. No symptoms or risks identified at this time. Initial Sepsis Screen: Does the patient meet any 2 criteria? No. Patient's initial sepsis screen is negative. Does the patient have a suspected source of infection? No. Patient's initial sepsis screen is negative. Risk Assessment: Do you want to hurt yourself or someone else? Patient reports no desire to harm self or others. Onset of symptoms was November 03, 2021. 14:22 Method Of Arrival: Wheelchair iw 14:22 Acuity: ROSCOE 3 iw Historical: - Allergies: 14:24 Sulfa (Sulfonamide Antibiotics); iw - PMHx: 14:24 Diverticulitis; High Cholesterol; Hypertension; iw - Immunization history:: Client reports receiving the 2nd dose of the Covid vaccine. - Social history:: Smoking status: . Screenin:15 Abuse screen: Denies threats or abuse. Denies injuries from another. Nutritional jg9 screening: No deficits noted. Tuberculosis screening: No symptoms or risk factors identified. Fall Risk None identified. Assessment: 14:30 General: Appears distressed, Behavior is crying, restless. Pain: Complains of pain in jg9 abdomen-RLQ Pain radiates to back-r flank/back Pain currently is 10 out of 10 on a pain scale. Quality of pain is described as sharp. Neuro: No deficits noted. Cardiovascular: No deficits noted. Respiratory: No deficits noted. GI: Abdomen is round Pt is actively vomiting Bowel sounds present X 4 quads. Abd is soft Abdomen is tender to palpation in anterior aspect of right lateral abdomen and right lower quadrant. : No deficits noted. EENT: No deficits noted. Derm: No deficits noted. Musculoskeletal: No deficits noted. 15:34 Reassessment: Patient returning from CT, can be heard moaning/groaning while being jg9 wheeled into the room. 15:43 Reassessment: Patient and/or family updated on plan of care and expected duration. Pain jg9 level reassessed. Patient states symptoms have not improved. Patient reports 9.5/10 pain, provider notified and ordered additional meds. 16:15 Reassessment: Patient and/or family updated on plan of care and expected duration. Pain jg9 level reassessed. Patient states feeling better. Patient states symptoms have improved. 17:19 Reassessment: Patient and/or family updated on plan of care and expected duration. Pain jg9 level reassessed. Patient is alert, oriented x 3, equal unlabored respirations, skin warm/dry/pink. Patient states feeling better. Vital Signs: 14:22 BP 184 / 79; Pulse 62; Resp 18; Temp 97.8; Pulse Ox 100% ; Weight 83.91 kg; Height 5 iw ft. 10 in. (177.80 cm); Pain 10/10; 14:25 BP 184 / 69; Pulse 87; Resp 20; Temp 97.8; Pulse Ox 98% on R/A; kj1 15:00 BP 144 / 72; Pulse 66; Resp 22 S; Pulse Ox 100% on R/A; jg9 16:00 BP 130 / 70; Pulse 66; Resp 10; Pulse Ox 89% on R/A; jg9 17:00 BP 117 / 64; Pulse 83; Resp 14; Pulse Ox 98% on 2 lpm NC; jg9 14:22 Body Mass Index 26.54 (83.91 kg, 177.80 cm) iw ED Course: 14:15 Patient has correct armband on for positive identification. Bed in low position. Call jg9 light in reach. 14:18 Patient arrived in ED. dh4 14:23 Triage completed. iw 14:25 Arm band placed on. iw 14:28 [facility]C [facility] kb 14:28 Derick Blair MD is Attending Physician. kb 14:28 Initial lab(s) drawn, by me, sent to lab. Inserted saline lock: 20 gauge in right kj1 antecubital area, using aseptic technique. Blood collected. 14:31 Faby Palma is Primary Nurse. jg9 15:07 Patient less distressed but still uncomfortable awaiting CT. jg9 15:28 CT Abd/Pelvis - IV Contrast Only In Process Unspecified. EDMS 16:25 Oxygen administration via nasal cannula \T\ 2L/min O2 via Patient spo2 89% in room air, jg9 patient sleeping, received narcotics, provider notified. 16:52 Resting quietly. Awaiting: Patient needs ua, urinal at bedside, patient u/a to urinate jg9 at this time. 17:09 Appears to be sleeping. Patient woke up and advised that we needed a urine sample, 2 jg9 cups of water given. 17:45 No provider procedures requiring assistance completed. jg9 17:45 IV discontinued. jg9 Administered Medications: 14:38 Drug: Zofran (Ondansetron) 4 mg Route: IVP; Site: right antecubital; iw 14:45 Follow up: Response: No adverse reaction; Nausea is decreased jg9 14:38 Drug: morphine 4 mg Route: IVP; Site: right antecubital; iw 14:45 Follow up: Response: No adverse reaction; No change in condition jg9 15:03 Follow up: Response: RASS: Alert and Calm (0) jg9 14:39 Drug: NS 0.9% 1000 ml Route: IV; Rate: 1000 ml; Site: right antecubital; iw 14:50 Drug: fentaNYL (PF) 25 mcg Route: IVP; Site: right antecubital; jg9 15:30 Follow up: Response: No adverse reaction; Other; RASS: Alert and Calm (0) jg9 15:43 Drug: morphine 4 mg Route: IVP; Site: right antecubital; jg9 15:53 Follow up: Response: No adverse reaction; Pain is decreased jg9 15:50 Drug: Ketorolac 15 mg Route: IVP; Site: right antecubital; jg9 17:42 Not Given (Patient Refused): Potassium Chloride 40 mEq PO once jg9 Outcome: 17:29 Discharge ordered by . kb 17:45 Discharged to home ambulatory, with significant other. jg9 17:45 Condition: improved 17:45 Discharge instructions given to patient, Instructed on discharge instructions, follow up and referral plans. Demonstrated understanding of instructions, follow-up care, medications, Prescriptions given X 2. 17:46 Patient left the ED. jg9 Signatures: Dispatcher [employer] EDJennifer Loja, OIL FIELD ROUSTABOUT-C OIL FIELD ROUSTABOUT-Mariia Cespedes, RN RN Viola Hernandez 1 Uzair Fenton 4 Faby Palma jg9 Corrections: (The following items were deleted from the chart) 14:24 14:22 Chief complaint: Patient states: sudden RLQ pain X 3o minutes, pain is stabbing, iw hx of colectomy and resection 16:53 16:17 Resting quietly. jg9 jg9 16:53 16:17 Awaiting disposition, jg9 jg9
[2021-11-03 18:01] VITALS: TEMP 97.8
[2021-11-03 18:07] VITALS: BP 117/64; O2SAT 98
== END 2021-11-03 17:46 | disposition home or self-care (01) ==
LOC: ER 14:16
DX: N13.30 Unspecified hydronephrosis (principal); I10 Essential (primary) hypertension; Z88.2 Allergy status to sulfonamides
CPT/HCPCS: 85025; 80048; 36415; 80076; 81003; 83690; 74177; 96375; 96374; 99284; Q9967; J3010; J7030; J2405